=== PATIENT | female | born 2005 | race Asian ===

== ENCOUNTER 2025-04-27 05:46 | Emergency (ER) | payer MEDICAID, SELFPAY ==
[2025-04-27 05:49] VITALS: BMI 18.9
[2025-04-27 06:11] VITALS: BP 118/79; PULSE 94; RESP 16; TEMP 37.1; O2SAT 96
--- NOTE | 2025-04-27 06:19 | PD.EDSKIN ---
ED Skin Abcess FB-RME/HPI General Chief complaint: Skin/Abscess/Foreign Body Stated complaint: RASH TO WHOLE BODY Time Seen by Provider: 04/27/25 06:11 Source: patient Arrival date/time: 04/27/25 05:46 20-year-old female with no known medical history presents to the emergency room with a chief complaint of a generalized rash to her abdomen and chest and back x 1 day. Patient denies any lip swelling tongue swelling or any difficulty breathing. Mode of arrival: ambulatory Limitations: no limitations Related Data Home Medications ?Medication ?Instructions ?Recorded ?Confirmed No Known Home Medications 03/14/24 03/14/24 Allergies Allergy/AdvReac Type Severity Reaction Status Date / Time ibuprofen Allergy Verified 04/27/25 05:47 Review of Systems Review of Systems Systems Reviewed: All systems reviewed, normal except as documented Constitutional Constitutional: Reports system reviewed and no additional complaints, except as documented, Denies fatigue, Denies fever(s), Denies headache(s) and Denies weakness Eyes Eyes: Reports system reviewed and no additional complaints, except as documented, Denies blurry vision, Denies change in vision and Denies itchy eyes ENT Ears, Nose, Mouth, and Throat: Reports system reviewed and no additional complaints, except as documented, Denies otalgia, Denies headache(s), Denies lip swelling, Denies nasal congestion, Denies throat swelling, Denies tongue swelling and Denies vertigo Cardiovascular Cardiovascular: Reports system reviewed and no additional complaints, except as documented, Denies chest pain, Denies dyspnea and Denies dyspnea on exertion Respiratory Respiratory: Reports system reviewed and no additional complaints, except as documented, Denies chest congestion, Denies cough, Denies dyspnea, Denies dyspnea on exertion and Denies wheezing Gastrointestinal Gastrointestinal: Reports system reviewed and no additional complaints, except as documented, Denies abdominal pain, Denies cramping, Denies nausea and Denies vomiting Genitourinary Genitourinary: Reports system reviewed and no additional complaints, except as documented Musculoskeletal Musculoskeletal: Reports system reviewed and no additional complaints, except as documented and Denies back pain Integumentary/Breasts Skin/Breast: Reports system reviewed and no additional complaints, except as documented and Denies wounds Neurologic Neurologic: Reports system reviewed and no additional complaints, except as documented, Denies confusion, Denies headache(s), Denies lack of coordination, Denies vertigo and Denies weakness Psychiatric Psychiatric: Reports system reviewed and no additional complaints, except as documented, Denies anxiety, Denies confusion, Denies depression, Denies paranoia, Denies suicidal ideation and Denies tactile hallucinations Endocrine Endocrine: Reports system reviewed and no additional complaints, except as documented and Denies fatigue Hematologic/Lymphatic Hematologic/Lymphatic: Reports system reviewed and no additional complaints, except as documented and Denies lymphadenopathy Allergic/Immunologic Allergic/Immunologic: Reports system reviewed and no additional complaints, except as documented, Denies GI upset with certain foods, Denies itchy eyes, Denies lip swelling, Denies seasonal rhinorrhea, Denies throat swelling, Denies tongue swelling, Reports urticaria and Denies wheezing Past Medical History Past Medical History NEUROLOGIC: Negative Neurological Disorders CARDIAC: Negative Cardiac Disorders or Congestive Heart Failure RESPIRATORY: Negative Chronic Obstructive Pulmonary Disease (COPD) GASTROINTESTINAL: Negative Gastrointestinal Disorders, Hepatitis, Colorectal Cancer or Obesity GENITOURINARY: Negative Genitourinary Disorders, Renal Disease or Prostate Cancer REPRODUCTIVE: Negative Breast Cancer or Testicular Cancer MUSCULOSKELETAL: Negative Musculoskeletal Disorders or Bone Cancer ENDOCRINE: Negative Endocrine Disorders, Diabetes Mellitus Type 1 or Diabetes Mellitus Type 2 HEMATOLOGIC: Negative Blood Disorders OTHER HISTORY: Negative Hospitalization, Autoimmune Disease, Down Syndrome, Developmental Delay, Shingles, Falls, Blood Transfusions, Blood Transfusion Reaction, Anesthesia Reactions, Organ Transplant, Chemotherapy, Radiation Therapy, Hyperbaric Therapy, MRSA, VRSA, Vancomycin-Resistant Enterococci, Human Immunodeficiency Virus (HIV), Chicken Pox, Measles, Mumps, Rubella ([place] Measles), Pertussis, Clostridium Difficile, Cancer, Breast Cancer, Cervical Cancer, Colorectal Cancer, Lung Cancer, Ovarian Cancer, Prostate Cancer or Testicular Cancer Family History FAMILY HISTORY: Negative Family Psychiatric Problems, Family Respiratory Disorders, Family Cardiac Disorders, Family Gastrointestinal Problems, Family Cancer, Family Surgery or Family Anesthesia Reaction Surgical History SURGICAL: Negative Section or Organ Transplant Social History SMOKING STATUS: Never smoker SECOND HAND EXPOSURE: No ED Exam General Limitations: Present no limitations General appearance: Present alert and in no apparent distress Head Head exam: Present atraumatic Eye Eye exam: Present normal appearance, PERRL and EOMI ENT ENT exam: Present normal exam, normal oropharynx and mucous membranes moist Neck Neck exam: Present normal inspection, full ROM and trachea midline Chest Chest inspection: Present normal inspection and symmetric chest wall rise Respiratory Respiratory exam: Present normal lung sounds bilaterally; Absent respiratory distress, wheezes, stridor, accessory muscle use or prolonged expiratory phase Cardiovascular Cardiovascular exam: Present regular rate, normal rhythm and normal heart sounds Abdominal Exam Abdominal exam: Present soft and normal bowel sounds Extremities Exam Extremities exam: Present normal inspection and full ROM Back Exam Back exam: Present normal inspection and full ROM Neurological Exam Neurological exam: Present alert, oriented X3 and CN II-XII intact Psychiatric Psychiatric exam: Present normal affect and normal mood Skin Skin exam: Present warm, dry, intact and normal color Expanded Skin Exam Type of lesion: Present rash Distribution: Present generalized, chest, back and abdomen Description: Present erythematous, macular and other (Hives); Absent swelling or discharge Course Quality Measures none Orders Category Date Time Status Dexamethasone Inj [Decadron Inj] Med 04/27/25 06:19 Discontinued 10 mg PO X1 ONE DiphenhydrAMINE [Benadryl] Med 04/27/25 06:19 Discontinued 25 mg PO X1 ONE Famotidine [Pepcid] Med 04/27/25 06:19 Discontinued 20 mg PO X1 ONE Vital Signs Vital signs: Vital Signs Temperature 98.7 F 04/27/25 06:11 Pulse Rate 94 04/27/25 06:11 Respiratory Rate 16 04/27/25 06:11 Blood Pressure 118/79 04/27/25 06:11 Pulse Oximetry (%) 96 04/27/25 06:11 Oxygen Delivery Method Room Air 04/27/25 06:11 Skin / Abscess / Foreign Body MDM Narrative MDM Narrative:: 20-year-old female with no known medical history presents to the emergency room with a chief complaint of a generalized rash to her abdomen and chest and back x 1 day. Patient denies any lip swelling tongue swelling or any difficulty breathing. Patient is hemodynamically stable and in no apparent distress Physical examination shows clear bilateral lung sounds there is no wheezing stridor or any abnormal breath sounds. There is no lip swelling tongue swelling or any respiratory distress. The patient has generalized hives to the abdomen to her lower back and to her chest. Patient states she has a history of this and she does not know what is causing this. The patient was educated that she can follow-up with her primary care provider for referral to an operations and maintenance specialist to narrow down on her trigger. Antihistamines were given with significant improvement of her symptoms. Patient was discharged and educated to follow-up with primary care provider in the next 24 to 48 hours and return to the emergency room for any evidence of worsening signs or symptoms Patient data External records reviewed:: [facility] previous records Clinical information provided by:: patient Social determinants that could affect healthcare access:: none Patient has the following chronic illnesses:: No chronic illness How is presenting disease/condition affected by chronic disease/condition?: no chronic disease Evaluation data The following diagnostics were reviewed and interpreted by me:: lab results and radiology exam(s) Lab and/or radiology exams considered but not ordered:: Labs and radiology exams considered and ordered Interpretation Summary: N/A Medications / Prescriptions Medications or Prescriptions considered but not ordered:: Medication given Medication administrations:: Medication Administration History Discontinued Medications Dexamethasone Sodium Phosphate (Dexamethasone Sod Phos Inj 10 Mg/Ml Vial) 10 mg PO X1 ONE Stop: 04/27/25 06:20 Last Admin: 04/27/25 06:32 Dose: 10 mg Documented By: JAMESL Diphenhydramine HCl (Diphenhydramine Elix 25 Mg/10 Ml Udc) 25 mg PO X1 ONE Stop: 04/27/25 06:20 Last Admin: 04/27/25 06:31 Dose: 25 mg Documented By: JEAN CLAUDE Famotidine (Famotidine 20 Mg Tablet) 20 mg PO X1 ONE Stop: 04/27/25 06:20 Last Admin: 04/27/25 06:33 Dose: 20 mg Documented By: JAMESL Medication given Consultations Consultation(s) initiated? (list below): No Diagnosis Skin/Abscess Differential Diagnosis: urticaria, allergic reaction to drug, insect bites and contact dermatitis Most likely diagnosis given after review of the tests above:: Allergic reaction Admission Indicated Admission indicated?: not indicated Admission Request Was there a request for admission?: No Disposition Plan Disposition Plan: Discharge Discharge Attestation Discharge Attestation: The patient and all family members were given an opportunity to ask questions and understood the discharge instructions. Discharge instructions specifically effects, indications for sooner follow up or return to the emergency department, and the expected course of current diagnosis. Patient condition: Stable Discharge Plan Plan Patient Disposition: HOME (Self Care) Discharge Disposition comment: Stable Prescriptions/Referrals Prescriptions/Med Rec: No Action No Known Home Medications Referrals: Kirstie Lange PA-C [Primary Care Provider] - In 1 week Problem List Clinical Impression: Allergic reaction Patient/Caregiver Discharge Instructions Education Materials: ED Medicine Reaction: Allergic Additional Instructions: Please follow-up with your primary care provider in the next 24 to 48 hours Medication was given to you to help you with your allergic reaction. If your signs and symptoms continue you can follow-up with your primary care provider for referral to an operations and maintenance specialist For any evidence of worsening signs or symptoms return to the emergency room immediately Print Language: Kazakh Stand Alone Forms: Shaylee Award Info., Work/School Release, Patient Portal Info Letter PA/WELFARE SPECIALIST Supervising Physician PA/WELFARE SPECIALIST Supervising Physician: Dr. Chin MORALES Attestation MD Attestation The patient was seen by the midlevel practitioner. I, the co-signing physician, was present during the entire ER visit. While I did not physically examine the patient, I was available for consultation as needed. I agree with the plan and documentation.
[2025-04-27] MEDS: DiphenhydrAMINE ELIX 25 MG/10 ML UDC PO (06:31)
[2025-04-27] MEDS: DEXAMETHASONE SOD PHOS INJ 10 MG/ML VIAL PO (06:32)
[2025-04-27] MEDS: FAMOTIDINE 20 MG TABLET PO (06:33)
[2025-04-27 07:30] VITALS: BP 120/80; PULSE 79; RESP 18; TEMP 36.7; O2SAT 100
== END 2025-04-27 07:30 | disposition home or self-care (01) ==
PROVIDERS: Emergency Provider Family Medicine; PCP Physician Assistant Medical
DX: T78.40XA Allergy, unspecified, initial encounter (principal); X58.XXXA Exposure to other specified factors, initial encounter; Z88.6 Allergy status to analgesic agent
CPT/HCPCS: 99283; J1100; A9270

== ENCOUNTER 2025-07-01 08:30 | Outpatient (RCR) | payer MEDICAID, SELFPAY ==
[2025-06-30 08:22] LABS: HCG Qualitative,Urine Negative
--- NOTE | 2025-06-30 08:30 | XR_ITS ---
EXAMINATION: Nuclear medicine thyroid uptake and scan Date and time: June 30, 2025, 1615 hours INDICATIONS: Diagnosis thyrotoxicosis unspecified, weight loss vomiting tachycardia TECHNIQUE AND FINDINGS: Oral administration 280 uCi I-123 6-hour 24-hour uptake values recorded as well as thyroid scan centroblastic 6-hour uptake 64.1% normal range 6 to 24% 24-hour uptake 77.9% normal range 10 to 36% Hyperfunctioning right thyroid lobe IMPRESSION: Markedly elevated thyroid uptake values Hyperfunctioning right thyroid lobe
== END 2025-07-06 23:59 | disposition home or self-care (01) ==
LOC: SNUC 08:30
PROVIDERS: PCP Physician Assistant Medical; Referring Provider Physician Assistant Medical; Visit Provider Physician Assistant Medical
DX: E07.89 Other specified disorders of thyroid (principal)
CPT/HCPCS: 78013; 81025; A9516